=== PATIENT | male | born 1995 | race American Indian/Alaskan Native ===

== ENCOUNTER 2022-05-08 14:38 | Emergency (ER) | payer SELFPAY ==
[2022-05-08] MEDS ORDERED: dexAMETHasone 4 MG/ML VIAL IM ONE (20:11)
[2022-05-08] MEDS ORDERED: LIDOCAINE-MPF (1%) 10 MG/1 ML VIAL 5 ML INFILTRATI ONE (20:11)
--- NOTE | 2022-05-08 20:52 | Emergency Department Report ---
ED ENT HPI - General Chief complaint: Dental/Oral Stated complaint: SWOLLEN MOUTH/DIZZY Time Seen by Provider: 05/08/22 20:10 Source: patient Mode of arrival: Ambulatory Limitations: No Limitations - History of Present Illness Initial comments: 26-year-old male [facility] [place] emergency department complaining swelling to the left jaw with pain to the mid mandible and upper maxillary region and a flexible tip in nature for the last 3 days and progressively worsening fashion. He reports no odynophagia or dysphagia. No hemoptysis hematemesis melena hematochezia. Swelling does not appear to be associated with salivation or eating. Reports having something similar in the past but worried the a previously fractured tooth that was not repaired may have been the nidus of the problem. MD complaint: tooth pain Location: tooth # Severity: mild Quality: dull Consistency: constant Improves with: none Worsens with: none Associated Symptoms: toothache - Related Data Previous Rx's Medication Instructions Recorded Last Taken Type Amoxicillin [Amoxicillin TAB] 875 mg PO BID #20 tablet 05/08/22 Unknown Rx Chlorhexidine Mouthwash [Peridex] 15 ml MM BID #1 bottle 05/08/22 Unknown Rx Ketorolac [Toradol] 10 mg PO Q6H PRN #15 tablet 05/08/22 Unknown Rx Lidocaine Viscous 2% 5 ml MM Q3H PRN #120 udc 05/08/22 Unknown Rx Allergies Allergy/AdvReac Type Severity Reaction Status Date / Time hydrocodone Allergy Unknown Verified 05/08/22 14:51 ED Dental HPI - General Chief complaint: Dental/Oral Stated complaint: SWOLLEN MOUTH/DIZZY Time Seen by Provider: 05/08/22 20:10 Source: patient Mode of arrival: Ambulatory Limitations: No Limitations - Related Data Previous Rx's Medication Instructions Recorded Last Taken Type Amoxicillin [Amoxicillin TAB] 875 mg PO BID #20 tablet 05/08/22 Unknown Rx Chlorhexidine Mouthwash [Peridex] 15 ml MM BID #1 bottle 05/08/22 Unknown Rx Ketorolac [Toradol] 10 mg PO Q6H PRN #15 tablet 05/08/22 Unknown Rx Lidocaine Viscous 2% 5 ml MM Q3H PRN #120 udc 05/08/22 Unknown Rx Allergies Allergy/AdvReac Type Severity Reaction Status Date / Time hydrocodone Allergy Unknown Verified 05/08/22 14:51 ED Review of Systems ROS: Stated complaint: SWOLLEN MOUTH/DIZZY Other details as noted in HPI Comment: All other systems reviewed and negative ED Past Medical Hx - Medications Home Medications: Home Medications Medication Instructions Recorded Confirmed Last Taken Type Amoxicillin [Amoxicillin TAB] 875 mg PO BID #20 tablet 05/08/22 Unknown Rx Chlorhexidine Mouthwash [Peridex] 15 ml MM BID #1 bottle 05/08/22 Unknown Rx Ketorolac [Toradol] 10 mg PO Q6H PRN #15 tablet 05/08/22 Unknown Rx Lidocaine Viscous 2% 5 ml MM Q3H PRN #120 udc 05/08/22 Unknown Rx ED Physical Exam - General Limitations: No Limitations General appearance: alert, in no apparent distress - Head Head exam: Present: atraumatic, normocephalic - Expanded Head Exam Expanded 1 - Area of pain tenderness and swelling to this region. Airway patent tongue uvula midline. No lymphadenopathy is appreciated. No temporomandibular joint tenderness - Eye Eye exam: Present: normal appearance, PERRL, EOMI Pupils: Present: normal accommodation - ENT ENT exam: Present: normal exam, normal orophraynx, mucous membranes moist, other - Expanded ENT Exam Expanded 1 - Other (Pain tenderness and swelling to this region with palpation. No exudate or discharge is present.) 2 - Other (Diffuse dental caries are noted with dental fractures of around tooth #15) - Neck Neck exam: Present: normal inspection, full ROM - Respiratory Respiratory exam: Present: normal lung sounds bilaterally. Absent: respiratory distress, wheezes, rales, chest wall tenderness, accessory muscle use - Cardiovascular Cardiovascular Exam: Present: regular rate, normal rhythm. Absent: systolic m urmur, diastolic murmur, rubs, gallop - GI/Abdominal GI/Abdominal exam: Present: soft, normal bowel sounds - Rectal Rectal exam: Present: deferred - Extremities Exam Extremities exam: Present: normal inspection - Back Exam Back exam: Present: normal inspection - Neurological Exam Neurological exam: Present: alert, oriented X3 - Psychiatric Psychiatric exam: Present: normal affect, normal mood - Skin Skin exam: Present: warm, dry, intact, normal color. Absent: rash ED Course Vital Signs 05/08/22 14:53 Temperature 98.9 F Pulse Rate 62 Respiratory 16 Rate Blood Pressure 158/61 O2 Sat by Pulse 99 Oximetry Critical care attestation.: If time is entered above; I have spent that time in minutes in the direct care of this critically ill patient, excluding procedure time. ED Disposition Clinical Impression: Dental abscess Disposition: HOME / SELF CARE / HOMELESS Is pt being admited?: No Does the pt Need Aspirin: No Condition: Stable Instructions: Dental Abscess Prescriptions: Amoxicillin [Amoxicillin TAB] 875 mg PO BID #20 tablet Lidocaine Viscous 2% 5 ml MM Q3H PRN #120 udc PRN Reason: Pain, Moderate (4-6) Chlorhexidine Mouthwash [Peridex] 15 ml MM BID #1 bottle Ketorolac [Toradol] 10 mg PO Q6H PRN #15 tablet PRN Reason: Pain
[2022-05-08 21:27] VITALS: BP 153/62
== END 2022-05-08 21:27 | disposition home or self-care (01) ==
LOC: ED 14:38
DX: K04.7 Periapical abscess without sinus (principal); Z91.09 Other allergy status, other than to drugs and biological substances; Z79.899 Other long term (current) drug therapy
CPT/HCPCS: 96372; 99282; J0696; J1100; J3490